=== PATIENT | male | born 1990 | race Caucasian/White ===

== ENCOUNTER 2024-06-13 22:29 | Emergency (ER) | payer SELFPAY ==
[2024-06-13] MEDS ORDERED: Sodium Chloride 0.9% 10 ML Syringe FLUSH PRN (22:47)
[2024-06-13 22:56] LABS: BASOPHILS ABSOLUTE AUTO 0.02 10^3/uL (0.00-0.10); BASOPHILS PERCENT AUTO 0.2 % (0.0-1.0); HEMATOCRIT 35.1 % (40.0-52.0); HEMOGLOBIN 11.7 g/dL (13.0-17.0); LYMPHOCYTES ABSOLUTE AUTO 1.11 10^3/uL (1.00-4.00); LYMPHOCYTES PERCENT AUTO 11.5 % (20.0-40.0); MEAN CORPUSCULAR HEMOGLOBIN 29.8 pg (27.0-31.0); MEAN CORPUSCULAR HGB CONC 33.3 g/dL (32.0-36.0); MEAN CORPUSCULAR VOLUME 89.5 fL (82.0-92.0); MEAN PLATELET VOLUME 9.7 fL (7.4-10.4); MONOCYTES PERCENT AUTO 4.2 % (2.0-8.0); NEUTROPHILS ABSOLUTE AUTO 8.09 10^3/uL (2.50-7.00); NEUTROPHILS PERCENT AUTO 84.1 % (50.0-70.0); PLATELET COUNT,PLT 249 10^3/uL (150-400); RED BLOOD CELL COUNT 3.92 10^6/uL (4.50-6.00); RED CELL DISTRIBUTION WIDTH 12.4 % (11.5-14.5); WHITE BLOOD CELL COUNT,WBC 9.62 10^3/uL (5.00-10.00)
[2024-06-13] MEDS: Ketorolac 30 MG/ML SDV IVPUSH ONE (23:00)
[2024-06-13 23:04] LABS: APPEARANCE,URINE CLEAR (CLEAR); BILIRUBIN,URINE NEGATIVE (NEGATIVE); COLOR,URINE YELLOW (YELLOW); GLUCOSE,URINE NEGATIVE (NEGATIVE); KETONES,URINE NEGATIVE (NEGATIVE); LEUKOCYTE ESTERASE,URINE NEGATIVE (NEGATIVE); NITRITE,URINE NEGATIVE (NEGATIVE); OCCULT BLOOD,URINE NEGATIVE (NEGATIVE); PROTEIN,URINE TRACE mg/dL (NEGATIVE); UROBILINOGEN,URINE >=8.0 E.U./dL (0.2-1.0)
[2024-06-13] MEDS: Sodium Chloride 0.9% 1,000 ML IV ONE (23:04)
[2024-06-13 23:13] LABS: BACTERIA,URINE FEW /HPF (NONE TO FEW); EPITHELIAL CELLS,URINE RARE /LPF; RBC,URINE 0-5 /HPF (0-5); WBC,URINE 0-5 /HPF (0-5)
[2024-06-13 23:13] LABS: ALBUMIN 3.24 g/dL (3.40-5.00); ANION GAP 13.3 mmol/L (5-15); BILIRUBIN TOTAL 1.1 mg/dL (0.2-1.0); CALCIUM 8.6 mg/dL (8.7-10.3); CARBON DIOXIDE,CO2 28.3 mmol/L (21.0-32.0); CREATININE 0.88 mg/dL (0.51-1.17); EST CRCL DRUG DOSING (CG) 142.7 mL/min; POTASSIUM,K 3.6 mmol/L (3.5-5.1)
[2024-06-13 23:34] LABS: INFLUENZA A NAA NEGATIVE (NEGATIVE); INFLUENZA B NAA NEGATIVE (NEGATIVE); RESPIRATORY SYNCYTIAL VIR NAA NEGATIVE (NEGATIVE)
[2024-06-13 23:35] LABS: CORONAVIRUS COVID-19 NAA NEGATIVE (NEGATIVE)
== END 2024-06-14 00:03 | disposition home or self-care (01) ==
LOC: KA.ED 22:29
DX: M54.2 Cervicalgia (principal); M54.9 Dorsalgia, unspecified; G89.29 Other chronic pain; D64.9 Anemia, unspecified; R68.83 Chills (without fever); R53.81 Other malaise; R73.9 Hyperglycemia, unspecified; F17.290 Nicotine dependence, other tobacco product, uncomplicated; Z91.013 Allergy to seafood
CPT/HCPCS: 0241U; 71045; 80053; 81001; 85025; 96361; 96374; 99283-25; 99284; J1885; J7030

== ENCOUNTER 2024-08-07 13:35 | Emergency (ER) | payer SELFPAY ==
[2024-08-07 13:59] LABS: BASOPHILS ABSOLUTE AUTO 0.06 10^3/uL (0.00-0.10); BASOPHILS PERCENT AUTO 1.3 % (0.0-1.0); HEMATOCRIT 39.6 % (40.0-52.0); HEMOGLOBIN 13.1 g/dL (13.0-17.0); LYMPHOCYTES ABSOLUTE AUTO 1.52 10^3/uL (1.00-4.00); LYMPHOCYTES PERCENT AUTO 33.9 % (20.0-40.0); MEAN CORPUSCULAR HEMOGLOBIN 29.2 pg (27.0-31.0); MEAN CORPUSCULAR HGB CONC 33.1 g/dL (32.0-36.0); MEAN CORPUSCULAR VOLUME 88.2 fL (82.0-92.0); MEAN PLATELET VOLUME 10.1 fL (7.4-10.4); MONOCYTES ABSOLUTE AUTO 0.35 10^3/uL (0.10-0.80); MONOCYTES PERCENT AUTO 7.8 % (2.0-8.0); NEUTROPHILS ABSOLUTE AUTO 2.56 10^3/uL (2.50-7.00); PLATELET COUNT,PLT 225 10^3/uL (150-400); RED BLOOD CELL COUNT 4.49 10^6/uL (4.50-6.00); RED CELL DISTRIBUTION WIDTH 14.1 % (11.5-14.5); WHITE BLOOD CELL COUNT,WBC 4.49 10^3/uL (5.00-10.00)
[2024-08-07 14:10] VITALS: BP 138/89; PULSE 80
[2024-08-07 14:18] LABS: ALANINE AMINOTRANSFERASE,ALT 31 U/L (14-63); ALBUMIN 3.57 g/dL (3.40-5.00); ALKALINE PHOSPHATASE 47 U/L (46-116); ANION GAP 13.1 mmol/L (5-15); ASPARTATE AMNIOTRANSFERASE,AST 25 U/L (15-37); BILIRUBIN TOTAL 0.7 mg/dL (0.2-1.0); BLOOD UREA NITROGEN,BUN 20 mg/dL (7-18); CARBON DIOXIDE,CO2 27.8 mmol/L (21.0-32.0); CHLORIDE,CL 104 mmol/L (98-107); CREATININE 0.93 mg/dL (0.51-1.17); EST CRCL DRUG DOSING (CG) 135.03 mL/min; ESTIMATED GFR 111 mL/min (>=60); ETHANOL BLOOD MEDICAL < 3 mg/dL (NOT DETECTED); GLUCOSE RANDOM 95 mg/dL (70-140); POTASSIUM,K 3.9 mmol/L (3.5-5.1); PROTEIN TOTAL,TP 6.7 g/dL (6.4-8.2); SODIUM,NA 141 mmol/L (136-145)
[2024-08-07 14:35] LABS: AMPHETAMINES SCREEN, URINE NEGATIVE (NEGATIVE); BARBITURATE SCREEN,URINE NEGATIVE (NEGATIVE); BENZODIAZEPINES SCREEN,URINE NEGATIVE (NEGATIVE); COCAINE METABOLITES,URINE NEGATIVE (NEGATIVE); METHADONE SCREEN, URINE NEGATIVE (NEGATIVE); METHAMPHETAMINES SCREEN, URINE NEGATIVE (NEGATIVE); OXYCODONE SCREEN,URINE NEGATIVE (NEGATIVE); PCP SCREEN,URINE NEGATIVE (NEGATIVE); TCA SCREEN,URINE NEGATIVE (NEGATIVE); THC SCREEN,URINE 50 NG/ML POSITIVE (NEGATIVE)
== END 2024-08-07 15:55 | disposition home or self-care (01) ==
LOC: KA.ED 13:35
DX: R07.9 Chest pain, unspecified (principal); R42 Dizziness and giddiness; Z91.013 Allergy to seafood
CPT/HCPCS: 71046; 80053; 80305-QW; 80307; 84484; 85025; 99285; Q3014